=== PATIENT | male | born 1985 | race Caucasian/White ===

== ENCOUNTER 2019-01-11 21:36 | Emergency (ER) | payer MEDICAID ==
[~2019-01-11] VITALS: Ht 185.4 cm; Wt 80.0 kg
[2019-01-12 01:00] VITALS: BP 113/74
== END 2019-01-12 01:03 | disposition home or self-care (01) ==
LOC: ER 21:37
DX: F15.10 Other stimulant abuse, uncomplicated (principal); Z02.89 Encounter for other administrative examinations
CPT/HCPCS: 99281

== ENCOUNTER 2022-04-12 00:22 | Emergency (ER) | payer MEDICAID ==
[~2022-04-12] VITALS: Ht 180.3 cm; Wt 81.8 kg
[2022-04-12 01:30] LABS: BASOPHILS % (AUTO) 0.4 % (0-1); EOSINOPHILS % (AUTO) 0.7 % (0-6); HEMATOCRIT 45.5 % (42.0-52.0); HEMOGLOBIN 15.5 g/dl (14.0-17.9); LYMPHOCYTES # (AUTO) 1.6 X10'3 (1.1-4.8); MEAN CORPUSCULAR HEMOGLOBIN 31.7 PG (27.0-31.0); MEAN CORPUSCULAR VOLUME 93.1 FL (78-98); MEAN PLATELET VOLUME 8.1 FL (7.4-10.4); MONOCYTES # (AUTO) 0.6 X10'3 (0-0.9); MONOCYTES % (AUTO) 14.5 % (2-12); NEUTROPHILS # (AUTO) 1.8 X10'3 (1.8-7.7); NEUTROPHILS % (AUTO) 45.4 % (42-75); PLATELET COUNT 211 X10'3 (140-440); RED BLOOD COUNT 4.88 X10'6 (4.70-6.10); RED CELL DISTRIBUTION WIDTH 13.4 % (11.5-14.5)
[2022-04-12 01:38] LABS: ALANINE AMINOTRANSFERASE 48 U/L (12-78); ALBUMIN 3.5 G/DL (3.4-5.0); ALBUMIN/GLOBULIN RATIO 0.9 (1.1-1.5); ALKALINE PHOSPHATASE 87 IU/L (46-116); ANION GAP 11 (8-16); ASPARTATE AMINO TRANSFERASE 57 U/L (10-37); BILIRUBIN,TOTAL 0.1 MG/DL (0.1-1.0); BLOOD UREA NITROGEN 17 MG/DL (7-18); CHLORIDE 100 MMOL/L (99-107); CREATININE 1.55 MG/DL (0.60-1.10); GLUCOSE 214 MG/DL (70-104); POTASSIUM 3.8 MMOL/L (3.5-5.1); SODIUM 137 MMOL/L (135-145); TOTAL CARBON DIOXIDE 26.3 MMOL/L (24-32); TOTAL PROTEIN 7.2 G/DL (6.4-8.2); eGFR 51 ML/MIN
--- NOTE | 2022-04-12 03:25 | NUR ---
WENT TO CHECK ON PATIENT AND HIS LIPS WERE BLUE, PATIENT SNORING AND IN RESPIRATORY DISTRESS. HE WAS GIVEN NARCAN.
[2022-04-12] MEDS ORDERED: naloxone 2mg/2ml inj ONE (03:26)
[2022-04-12] MEDS ORDERED: naloxone 0.4 mg/ml inj IV ONE ×2 (03:30→03:35)
[2022-04-12] MEDS ORDERED: naloxone 2mg/2ml inj IV STA (03:32)
[2022-04-12] MEDS ORDERED: NO HOME MEDS (03:43)
[2022-04-12 05:25] VITALS: BP 129/70
== END 2022-04-12 05:26 | disposition home or self-care (01) ==
LOC: ER 00:22
DX: T40.411A Poisoning by fentanyl or fentanyl analogs, accidental (unintentional), initial encounter (principal); R09.2 Respiratory arrest; F17.200 Nicotine dependence, unspecified, uncomplicated; F15.20 Other stimulant dependence, uncomplicated; Y92.89 Other specified places as the place of occurrence of the external cause
CPT/HCPCS: 36415; 80053; 85025; 93005; 96374; 96376; 99285; J2310

== ENCOUNTER 2024-08-12 13:42 | Emergency (ER) | payer MEDICAID ==
[~2024-08-12] VITALS: Ht 182.9 cm; Wt 78.8 kg
[~2024-08-12 13:42] MED LIST: NO HOME MEDS
[2024-08-12 13:51] VITALS: TEMP 97.6
[2024-08-12] MEDS: CefTRIAXone 1000mg IM Kit (w/lidocaine diluent) IM ONE (15:17)
[2024-08-12] MEDS ORDERED: SULF1TAB49 PO (15:19)
[2024-08-12 15:32] VITALS: BP 124/72; PULSE 76; RESP 15; O2SAT 99
== END 2024-08-12 15:34 | disposition home or self-care (01) ==
LOC: ER 13:42
DX: L02.511 Cutaneous abscess of right hand (principal); F15.90 Other stimulant use, unspecified, uncomplicated
CPT/HCPCS: 96372; 99283; J0696

== ENCOUNTER 2024-10-21 16:47 | Emergency (ER) | payer MEDICAID ==
[~2024-10-21] VITALS: Ht 185.4 cm; Wt 79.5 kg
[2024-10-21] MEDS: proparacaine 0.5% ophthalmic drops 15ml EACHEYE ONE (17:49)
[2024-10-21] MEDS ORDERED: ERYT1OIN6 EACHEYE (17:55)
[2024-10-21 18:03] VITALS: BP 145/88; PULSE 94; RESP 16; TEMP 98; O2SAT 98
== END 2024-10-21 18:05 | disposition home or self-care (01) ==
LOC: ER 16:48
DX: T15.92XA Foreign body on external eye, part unspecified, left eye, initial encounter (principal); F15.90 Other stimulant use, unspecified, uncomplicated; W44.9XXA Unspecified foreign body entering into or through a natural orifice, initial encounter; Y93.89 Activity, other specified; Y92.89 Other specified places as the place of occurrence of the external cause; Y99.8 Other external cause status
CPT/HCPCS: 99284

== ENCOUNTER 2025-04-15 12:36 | Emergency (ER) | payer MEDICAID ==
[~2025-04-15] VITALS: Ht 182.9 cm; Wt 77.8 kg
[2025-04-15 12:39] VITALS: BP 128/87; PULSE 87; RESP 20; TEMP 97.6; O2SAT 99
--- NOTE | 2025-04-15 13:37 | RADIOLOGY REPORT ---
EXAM: DI LUMBAR SPINE LIMITED HISTORY: low back pain COMPARISON: None TECHNIQUE: AP and lateral views of the lumbar spine and spot lateral of the lumbosacral junction were performed. FINDINGS: No fracture, scoliosis, or listhesis of the lumbar spine. No significant degenerative changes. IMPRESSION: Fracture or significant degenerative changes of the lumbar spine.
--- NOTE | 2025-04-15 13:49 | RADIOLOGY REPORT ---
DI CERVICAL SPINE LTD INDICATION: low back pain TECHNICAL DATA: The following views were obtained of the cervical spine: Frontal, lateral,bilateral o blique, swimmer's, open mouth . COMPARISON: None FINDINGS: C1-7 are visualized on the lateral view for evaluation of alignment. Cervical curvature is normal. Th ere is no spondylolisthesis. Vertebral body heights are maintained. Disk heights are narrowed and deg enerative. The facet joints appear degenerative. The dens and predental space demonstrate no abnormal ity. The C1-C2 articulation appears normal. Prevertebral soft tissues are within normal limits. IMPRESSION: No acute fracture or dislocation of the cervical spine.
--- NOTE | 2025-04-15 13:58 | Physician Documentation ---
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 Patient denies any saddle anesthesia or changes in bowel or bladder habits and he has no other concern or complaint at this time. Medication Reconciliation Allergies: Coded Allergies: No Known Allergies (Unverified , 04/15/25) Miscellaneous Medications Home Med List (No Home Medications), (Reported) Past Medical History Past Medical History: No Pertinent History Past Surgical History: no surgical history Drug Use: methamphetamine Lives In: Home Review of Systems Constitutional: Denies: chills, fever, weakness Eyes: Denies: pain, blurred vision ENT: Denies: ear pain, nose pain, throat pain, mouth pain Respiratory: Denies: cough, shortness of breath Cardiovascular: Denies: chest pain, palpitations Gastrointestinal: Denies: abdominal pain, nausea, vomiting Genitourinary: Denies: burning, dysuria Male Genitalia: Denies: penile discharge, testicular pain Neurological: Denies: headache, dizziness Musculoskeletal: Denies: pain, swelling Integumentary: Denies: rash, lesions Allergic/Immunologic: Denies: hives, itching Hematologic/Lymphatic: Denies: no symptoms reported Psychiatric: Denies: depression, anxiety Physical Exam Physical Exam Vital Signs: Temperature: 97.6, Source: Oral, Heart Rate: 87, Respiratory Rate: 20, BP: 128/87, Pulse Oximetry: 99, Weight: 77.750 Oxygen Flow Rate: 0 Physical Exam General: Awake and Alert, no acute distress. HEENT: Conjunctiva pink, Sclera clear, Mucus Membranes moist. Neck: Supple without masses and tenderness. Resp: Unlabored. Lungs clear to auscultation bilaterally. Heart: Regular Rate and rhythm, normal S1 and S2 without murmur, rub or gallop. Musculoskeletal: Patient on exam has decreased range of motion of the lumbar spine in all planes of motion. Patient is neurovascularly intact distally, motor function and strength intact distally. Extremities: No cyanosis,clubbing or edema. Skin: Warm and Dry. Progress Results/Orders Results/Orders Orders - NGHIA BURNS PAC Lumbar Spine Limited (04/15/25 13:03) Cervical Spine Ltd (04/15/25 ) Cbc/Diff (04/15/25 13:03) BMP (04/15/25 13:03) Completed Orders - NGHIA BURNS PAC Lumbar Spine Limited (04/15/25 13:03) Cervical Spine Ltd (04/15/25 ) Vital Signs 04/15/25 12:39 Temp 97.6 Pulse 87 Resp 20 B/P (MAP) 128/87 Pulse Ox 99 O2 Flow Rate 0 EKG/XRAY/CT/US/VASC/MRI Bone/Soft Tissue X-Ray (Spine) : Additional Comment X-ray interpretation of cervical and lumbar spine by myself today show no sign o f acute fracture, patient does have degenerative disc disease of the cervical spine and straightening of the normal lordotic curve of the cervical spine. I do not appreciate any significant degenerative disc disease of the lumbar spine. DIAGNOSTIC RADIOLOGY Patient: PAULINO OSORIO Medical Record: [id number] [facility] : 1985, Age: 40 Sex: Male Location: ER Patient Status: REG ER Service Date/Time: 04/15/25 Ordering Physician: NGHIA BURNS PAC Exam: CERVICAL SPINE LTD DI CERVICAL SPINE LTD INDICATION: low back pain TECHNICAL DATA: The following views were obtained of the cervical spine: Frontal, lateral,bilateral oblique, swimmer's, open mouth . COMPARISON: None FINDINGS: C1-7 are visualized on the lateral view for evaluation of alignment. Cervical curvature is normal. There is no spondylolisthesis. Vertebral body heights are maintained. Disk heights are narrowed and degenerative. The facet joints appear degenerative. The dens and predental space demonstrate no abnormality. The C1-C2 articulation appears normal. Prevertebral soft tissues are within normal limits. IMPRESSION: No acute fracture or dislocation of the cervical spine. Electronically Signed by:MATIAS MAYES MD Date & Time: 04/15/251345 Dictated by: MATIAS MAYES MD Dictation date and time: 04/15/251345 Primary Care Provider: NO PRIMARY CARE PROVIDER cc: NGHIA BURNS PAC ~ DIAGNOSTIC RADIOLOGY Patient: PAULINO OOSRIO Medical Record: [id number] [facility] : 1985, Age: 40 Sex: Male Location: ER Patient Status: [facility] ER Service Date/Time: 04/15/25/ 1303 Ordering Physician: NGHIA BURNS PAC Exam: LUMBAR SPINE LIMITED EXAM: DI LUMBAR SPINE LIMITED HISTORY: low back pain COMPARISON: None TECHNIQUE: AP and lateral views of the lumbar spine and spot lateral of the lumbosacral junction were performed. FINDINGS: No fracture, scoliosis, or listhesis of the lumbar spine. No significant degenerative changes. IMPRESSION: Fracture or significant degenerative changes of the lumbar spine. 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 Patient denies any saddle anesthesia or changes in bowel or bladder habits and he has no other concern or complaint at this time. Patient did have x-rays taken of cervical and lumbar spine without any sign of acute fracture or injury. Patient was given prescription for meloxicam 15 mg one tab once a day as well as methocarbamol muscle relaxer to be taken as indicated. Patient will follow up with primary care in 2-5 days if no better as needed sooner for referral to physical therapy for further eval and treatment. Patient will return to ED with any worsening, concerning or changing symptoms. Departure Disposition: 01 HOME / SELF CARE / HOMELESS Impression: Primary Impression: Low back pain Qualified Codes: M54.50 - Low back pain, unspecified Additional Impression: Cervical pain (neck) Condition: Improved Discharge Instructions: Acute Back Pain, Adult Additional Instructions: Patient did have x-rays taken of cervical and lumbar spine without any sign of acute fracture or injury. Patient was given prescription for meloxicam 15 mg one tab once a day as well as methocarbamol muscle relaxer to be taken as indicated. Patient will follow up with primary care in 2-5 days if no better as needed sooner for referral to physical therapy for further eval and treatment. Patient will return to ED with any worsening, concerning or changing symptoms. Referrals: NO PRIMARY CARE PROVIDER (PCP) Prescriptions Methocarbamol (Methocarbamol) 750 Mg Tablet 1 TAB PO Q8H for 15 Days, #45 TAB 0 Refills Prov: NGHIA BURNS 04/15/25 Meloxicam (Meloxicam) 15 Mg Tablet 1 TAB PO DAILY for 15 Days, #15 TAB 0 Refills Prov: NGHIA BURNS 04/15/25 Signature Scribe Signature: No scribe Attestation: No scribe NGHIA BURNS Apr 15, 2025 13:58
[2025-04-15] MEDS ORDERED: MELO-102 PO (14:31)
[2025-04-15] MEDS ORDERED: METH-798 PO (14:31)
== END 2025-04-15 14:41 | disposition home or self-care (01) ==
LOC: ER 12:36
DX: M54.2 Cervicalgia (principal); M54.50 Low back pain, unspecified
CPT/HCPCS: 72040; 72100; 99284